=== PATIENT | female | born 1995 | race Caucasian/White ===

== ENCOUNTER 2019-01-30 21:06 | Emergency (ER) | payer BC, OTHER ==
[2019-01-30 21:11] VITALS: BP 153/89; PULSE 78; TEMP 97.8; BMI 34.3
--- NOTE | 2019-01-30 21:11 | PDOC ---
Rapid Medical Evaluation Time Seen by Provider: 01/30/19 21:08 Medical Evaluation: Allergies Allergy/AdvReac Type Severity Reaction Status Date / Time No Known Allergies Allergy Verified 04/21/15 11:27 01/30/19 21:09 I have performed a brief in-person evaluation of this patient. The patient presents with a chief complaint of: "I have been anxious all day." tingling to LUE Pertinent physical exam findings: Lungs CTAB. RRR. No m/r/g. No sensory or motor deficits. I have ordered the following: nothing The patient will proceed to the ED for further evaluation. Discharge Disposition - Diagnosis Anxiety - Referrals - Patient Instructions - Post Discharge Activity
--- NOTE | 2019-01-30 22:43 | PDOC ---
History of Present Illness - General Chief Complaint: Head/Neck problem Stated Complaint: NUMBNESS IN LEFT HAND Time Seen by Provider: 01/30/19 21:08 History Source: Patient Exam Limitations: No Limitations Past History - Past Medical History Allergies/Adverse Reactions: Allergies Allergy/AdvReac Type Severity Reaction Status Date / Time No Known Allergies Allergy Verified 01/30/19 21:11 Home Medications: Ambulatory Orders Cephalexin Monohydrate [Keflex -] 500 mg PO Q6H #20 capsule 04/21/15 Asthma: No Cancer: No Cardiac Disorders: No COPD: No Diabetes: No HTN: No Seizures: No Thyroid Disease: No - Suicide/Smoking/Psychosocial Hx Smoking History: Never smoked Hx Alcohol Use: No Drug/Substance Use Hx: No Hx Substance Use Treatment: No *Physical Exam - Vital Signs Last Vital Signs Temp Pulse Resp BP Pulse Ox 97.8 F 78 18 153/89 100 01/30/19 21:08 01/30/19 21:08 01/30/19 21:08 01/30/19 21:08 01/30/19 21:08 - Physical Exam Neck: positive: Supple. negative: Rigid, Rigidity, Tender lateral, Tender midline Respiratory/Chest: positive: Lungs Clear, Normal Breath Sounds. negative: Respiratory Distress Cardiovascular: positive: Regular Rhythm, Regular Rate, S1, S2. negative: Murmur Gastrointestinal/Abdominal: positive: Normal Bowel Sounds, Soft. negative: Tender, Distended, Guarding, Rebound Musculoskeletal: positive: Normal Inspection. negative: Decreased Range of Motion, Muscle Spasm, Vertebral Tenderness Extremity: positive: Normal Inspection, Normal Range of Motion, Other (2+ pulses LUE ). 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 Symptoms are intermittent in nature. Denies prior hx of anxiety and states is not feeling particularly stressed or nervous about anything. Denies fever, sob, cp, abd pain, n/v/d, headache, neck pain. Denies drug use or smoking. Denies drinking excess coffee today. Patient is right handed PE unremarkable; no focal deficits Could possibly be related to anxiety Stable for dc 01/30/19 22:39 *DC/Admit/Observation/Transfer Diagnosis at time of Disposition: Anxiety - Discharge Dispostion Disposition: HOME Condition at time of disposition: Stable Decision to Admit order: No - Referrals Referrals: Ralph Borrego MD [Staff Physician] - 2 Days - Patient Instructions Printed Discharge Instructions: DI for Anxiety -- Adult Additional Instructions: Thank you for choosing [facility]. It was a pleasure taking care of you. Possibly your symptoms are related to anxiety You were referred to primary care clinic for further evaluation. Return to the Emergency Department if your symptoms worsen or persist or have other concerning symptoms. - Post Discharge Activity
== END 2019-01-30 23:15 | disposition home or self-care (01) ==
LOC: JER 21:06
DX: F41.9 Anxiety disorder, unspecified (principal)
CPT/HCPCS: 99281-25

== ENCOUNTER 2019-04-21 22:32 | Emergency (ER) | payer SELFPAY ==
[2019-04-21 22:53] VITALS: BP 139/86; PULSE 77; TEMP 98.5; BMI 37.8
[2019-04-22 00:30] LABS: BASO % 0.6 % (0-2.0); HEMATOCRIT 41.8 % (32.4-45.2); HEMOGLOBIN 13.3 GM/dL (10.7-15.3); MCH 25.2 pg (25.7-33.7); MCHC 31.7 g/dl (32.0-36.0); MEAN CELL VOLUME 79.5 fl (80-96); MEAN PLT VOLUME 9.3 fl (7.5-11.1); MONO % 5.8 % (3.8-10.2); NEUT % 66.6 % (42.8-82.8); PLATELET COUNT 293 K/MM3 (134-434); RBC 5.26 M/mm3 (3.60-5.2); RDW 14.4 % (11.6-15.6); WHITE BLOOD COUNT 11.3 K/mm3 (4.0-10.0)
[2019-04-22 00:40] LABS: PH,URINE 6.5 (5.0-8.0); URINE APPEARANCE CLEAR; URINE BILIRUBIN NEGATIVE (NEGATIVE); URINE COLOR YELLOW; URINE GLUCOSE (UA) NEGATIVE (NEGATIVE); URINE KETONE TRACE (NEGATIVE); URINE LEUK ESTERASE NEGATIVE (NEGATIVE); URINE NITRITE NEGATIVE (NEGATIVE); URINE PROTEIN TRACE (NEGATIVE)
[2019-04-22 00:43] LABS: HCG,QUALITATIVE URINE Negative
[2019-04-22 00:47] LABS: INR 1.07 (0.83-1.09); PROTHROMBIN TIME (PATIENT) 12.6 SEC (9.7-13.0)
[2019-04-22 01:16] LABS: ALBUMIN 3.9 g/dl (3.4-5.0); ALK PHOS 61 U/L (45-117); ANION GAP 6 MMOL/L (8-16); BILIRUBIN,TOTAL 0.6 mg/dL (0.2-1); BLOOD UREA NITROGEN 15.8 mg/dL (7-18); CALCIUM 8.8 mg/dL (8.5-10.1); CHLORIDE 106 mmol/L (98-107); CO2 25 mmol/L (21-32); CREATININE 0.7 mg/dL (0.55-1.3); GLUCOSE,RANDOM 90 mg/dL (74-106); MAGNESIUM 2.3 mg/dL (1.8-2.4); POTASSIUM 4.4 mmol/L (3.5-5.1); SGOT/AST 19 U/L (15-37); SGPT/ALT 18 U/L (13-61); SODIUM 138 mmol/L (136-145); TOT PROT 7.8 g/dl (6.4-8.2)
--- NOTE | 2019-04-22 02:01 | PDOC ---
History of Present Illness - General Chief Complaint: Chest Pain Stated Complaint: CHEST PAIN Time Seen by Provider: 04/21/19 23:49 History Source: Patient Exam Limitations: No Limitations - History of Present Illness Initial Comments: 04/22/19 01:56 HISTORY OF PRESENT ILLNESS: 23-year-old woman denies medical history presents emergency department for evaluation of left-sided chest fluttering which started approximately 10:00 tonight. Patient reports the fluttering sensation felt like her heart beat was accelerating and decelerating spontaneously and then spontaneously resolve as fast as it arrived. Patient then reported pain to the left side of her lateral neck which lasted briefly and then spontaneously resolved. Earlier in the day patient reports her also unexpectedly. Patient was in the emergency department all day with her grandmother who is dealing with an anxiety attack after hearing the news of the. Patient reports she was laying down tonight when the fluttering had started and came to the emergency department for evaluation. No recent travel or sick contacts. PAST MEDICAL HISTORY: Denies past medical history SURGICAL HISTORY: Denies ALLERGIES: No known drug allergies REVIEW OF SYSTEMS General/Constitutional: Denies fever or chills. Denies weakness, weight change. HEENT: Denies change in vision. Denies ear pain or discharge. Denies sore throat. Cardiovascular: see HPI Respiratory: Denies cough, wheezing, or hemoptysis. Gastrointestinal: Denies nausea, vomiting, diarrhea or constipation. Denies rectal bleeding. Genitourinary: Denies dysuria, frequency, or change in urination. Musculoskeletal: Denies joint or muscle swelling or pain. Denies neck or back pain. Skin and breasts: Denies rash or easy bruising. Neurologic: Denies headache, vertigo, loss of consciousness, or loss of sensation. Psychiatric: Denies depression or anxiety. Endocrine: Denies increased thirst. Denies abnormal weight change. Hematologic/Lymphatic: Denies anemia, easy bleeding, or history of blood clots. Allergic/Immunologic: Denies hives or skin allergy. Denies latex allergy. PHYSICAL EXAM General Appearance: Well-appearing, appropriately dressed. No apparent distress , no intoxication. HEENT: EOMI, PERRLA, normal ENT inspection, normal voice, TMs normal, pharynx normal. No conjunctival pallor. No photophobia, scleral icterus. Neck: Supple. Trachea midline. No tenderness, rigidity, carotid bruit, stridor , lymphadenopathy, or thyromegaly. Respiratory/Chest: Lungs CTAB. No shortness of breath, chest tenderness, respiratory distress, accessory muscle use. No crackles, rales, rhonchi, stridor , wheezing, dullness Cardiovascular: RRR. S1, S2. No JVD, murmur, bradycardia, tachycardia. Vascular Pulses: Dorsalis-Pedis (R): 2+, Dorsalis-Pedis (L): 2+ Gastrointestinal/Abdominal: Normal bowel sounds. Abdomen soft, non-distended. No tenderness or rebound tenderness. No organomegaly, pulsatile mass, guarding, hernia, hepatomegaly, splenomegaly. Lymphatic: No adenopathy, tenderness. Musculoskeletal/Extremities: Normal inspection. FROM of all extremities, normal capillary refill. Pelvis Stable. No CVA tenderness. No tenderness to extremities, pedal edema, swelling, erythema or deformity. Integumentary: Appropriate color, dry, warm. 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 Fully oriented, alert. Appropriate mood/affect. Motor strength 5/5. No appreciable EOM palsy, facial droop or sensory deficit. Past History - Past Medical History Allergies/Adverse Reactions: Allergies Allergy/AdvReac Type Severity Reaction Status Date / Time No Known Allergies Allergy Verified 04/21/19 23:33 Home Medications: Ambulatory Orders NK [No Known Home Medication] 04/21/19 Asthma: No Cancer: No Cardiac Disorders: No COPD: No Diabetes: No HTN: No Seizures: No Thyroid Disease: No - Suicide/Smoking/Psychosocial Hx Smoking History: Former smoker Have you smoked in the past 12 months: No Information on smoking cessation initiated: No Hx Alcohol Use: No Drug/Substance Use Hx: No Hx Substance Use Treatment: No *Physical Exam - Vital Signs Last Vital Signs Temp Pulse Resp BP Pulse Ox 98.5 F 77 16 139/86 100 04/21/19 22:43 04/21/19 22:43 04/21/19 22:43 04/21/19 22:43 04/21/19 22:43 ED Treatment Course - LABORATORY CBC & Chemistry Diagram: 04/22/19 00:19 04/22/19 00:19 - ADDITIONAL ORDERS Additional order review: Laboratory Results 04/22/19 04:10 Troponin I < 0.02 04/22/19 00:19 RBC 5.26 H MCV 79.5 L MCHC 31.7 L RDW 14.4 MPV 9.3 Neutrophils % 66.6 Lymphocytes % 25.0 D Monocytes % 5.8 Eosinophils % 2.0 D Basophils % 0.6 - RADIOLOGY Radiology Studies Ordered: Category Date Time Status CHEST PA & LAT [RAD] Stat Radiology 04/22/19 00:02 Completed Medical Decision Making - Medical Decision Making 04/22/19 02:00 A/P: 23-year-old woman with resolve left-sided chest fluttering and left neck pain starting at 10:00 this evening As this is likely anxiety related to sudden of her uncle this patient is on Mirena contraception I will rule out's ACS and PE. Labs including cardiac profile and d-dimer Urinalysis Chest x-ray EKG Reassess EKG reviewed by me as interpreted by Dr. Ryan sinus rhythm with rate of 71. Normal intervals noted. Normal axis. No ischemic changes present. Laboratory Tests 04/22/19 04/22/19 04/22/19 00:19 00:19 00:19 WBC 11.3 H Hgb 13.3 Hct 41.8 Plt Count 293 D D-Dimer 374 Sodium 138 Potassium 4.4 Chloride 106 Carbon Dioxide 25 BUN 15.8 Creatinine 0.7 Creatine Kinase 205 H Creatine Kinase Index 0.4 CK-MB (CK-2) < 1.0 Troponin I < 0.02 Patient pending repeat troponin. Patient has been signed out to Dr. Walters for continued evaluation. *DC/Admit/Observation/Transfer Diagnosis at time of Disposition: Palpitations - Discharge Dispostion Disposition: HOME Condition at time of disposition: Stable - Referrals Referrals: Abraham Cordero MD [Staff Physician] - - Patient Instructions Printed Discharge Instructions: DI for Atypical Chest Pain Additional Instructions: Your workup here in the ER was unremarkable. Please take the copy of the workup and follow up with your doctor. If you continue to feel any persistence of symptoms, please call and schedule an appointment with cardiologyl. - Post Discharge Activity
--- NOTE | 2019-04-22 05:47 | PDOC ---
*Physical Exam - Vital Signs Last Vital Signs Temp Pulse Resp BP Pulse Ox 98.5 F 77 16 139/86 100 04/21/19 22:43 04/21/19 22:43 04/21/19 22:43 04/21/19 22:43 04/21/19 22:43 ED Treatment Course - LABORATORY CBC & Chemistry Diagram: 04/22/19 00:19 04/22/19 00:19 - ADDITIONAL ORDERS Additional order review: Laboratory Results 04/22/19 04/22/19 04/22/19 04:10 00:19 00:19 PT with INR INR D-Dimer Sodium 138 Potassium 4.4 Chloride 106 Carbon Dioxide 25 Anion Gap 6 L BUN 15.8 Creatinine 0.7 Est GFR (CKD-EPI)AfAm 140.55 Est GFR (CKD-EPI)NonAf 121.27 Random Glucose 90 Calcium 8.8 Magnesium 2.3 Total Bilirubin 0.6 AST 19 ALT 18 Alkaline Phosphatase 61 Creatine Kinase 205 H Creatine Kinase Index 0.4 CK-MB (CK-2) < 1.0 Troponin I < 0.02 < 0.02 Total Protein 7.8 Albumin 3.9 Urine Color Yellow Urine Appearance Clear Urine pH 6.5 D Ur Specific [place] 1.039 H Urine Protein Trace Urine Glucose (UA) Negative Urine Ketones Trace H Urine Blood Negative Urine Nitrite Negative Urine Bilirubin Negative Urine Urobilinogen 1.0 Ur Leukocyte Esterase Negative Urine HCG, Qual Negative 04/22/19 04/22/19 00:19 00:19 PT with INR 12.60 INR 1.07 D-Dimer 374 Sodium Potassium Chloride Carbon Dioxide Anion Gap BUN Creatinine Est GFR (CKD-EPI)AfAm Est GFR (CKD-EPI)NonAf Random Glucose Calcium Magnesium Total Bilirubin AST ALT Alkaline Phosphatase Creatine Kinase Creatine Kinase Index CK-MB (CK-2) Troponin I Total Protein Albumin Urine Color Urine Appearance Urine pH Ur Specific [place] Urine Protein Urine Glucose (UA) Urine Ketones Urine Blood Urine Nitrite Urine Bilirubin Urine Urobilinogen Ur Leukocyte Esterase Urine HCG, Qual 04/22/19 00:19 RBC 5.26 H MCV 79.5 L MCHC 31.7 L RDW 14.4 MPV 9.3 Neutrophils % 66.6 Lymphocytes % 25.0 D Monocytes % 5.8 Eosinophils % 2.0 D Basophils % 0.6 *DC/Admit/Observation/Transfer Diagnosis at time of Disposition: Palpitations - Discharge Dispostion Disposition: HOME Condition at time of disposition: Stable Decision to Admit order: No - Referrals Referrals: Abraham Cordero MD [Staff Physician] - - Patient Instructions Printed Discharge Instructions: DI for Atypical Chest Pain Additional Instructions: Your workup here in the ER was unremarkable. Please take the copy of the workup and follow up with your doctor. If you continue to feel any persistence of symptoms, please call and schedule an appointment with cardiologyl. - Post Discharge Activity
--- NOTE | 2019-04-23 13:22 | EKG ---
Test Reason : Blood Pressure : / mmHG Vent. Rate : 071 BPM Atrial Rate : 071 BPM P-R Int : 162 ms QRS Dur : 080 ms QT Int : 402 ms P-R-T Axes : 070 063 033 degrees QTc Int : 436 ms NORMAL SINUS RHYTHM WITH SINUS ARRHYTHMIA LEFT ATRIAL ENLARGEMENT BORDERLINE ECG Confirmed by MD MARIAN, PORSHA ([id number]) on 04/23/2019 1:21:32 PM Referred By: Confirmed By:PORSHA FONSECA MD
== END 2019-04-22 05:48 | disposition home or self-care (01) ==
LOC: JER 22:32
DX: R00.2 Palpitations (principal); Z79.3 Long term (current) use of hormonal contraceptives
CPT/HCPCS: 36415; 71046-TC-FY; 80053; 81003; 82550; 82553; 83735; 84484; 84703; 85025; 85379; 85610; 93005; 93010; 99283-25